=== PATIENT | female | born 1955 | race Caucasian/White ===

== ENCOUNTER 2019-09-25 20:46 | Emergency (ER) | payer OTHER ==
[~2019-09-25] VITALS: Ht 162.6 cm; Wt 82.6 kg
[~2019-09-25 20:46] MED LIST: AZIT250T6 PO; BENZ100C PO
--- NOTE | 2019-09-25 20:57 | PHYS DOC ---
Past History Past Medical History: No Pertinent History Past Surgical History: No Surgical History Alcohol Use: None Drug Use: None Adult General Chief Complaint Chief Complaint: MECHANICAL FALL... " I just came back from [place].. my friend told me to be careful... but I was out shoveling the drive way.. and fell.. the Lt knee is not too bad.. but this right is getting worse by the minute..." HPI HPI Patient is a 64 year old female who presents with above hx and complaints of fall. Patient localizes the area primary pain to right medial aspect of collateral ligament and meniscus. Distal neurovascular intact. Patient is able to do straight leg lift. Pain is exacerbated with stress on medial collateral li gament. There is obvious edema. There is no obvious click. No previous injury to this right knee. Left knee has a small contusion. Patient recent travel from [place]. Pt. normally follows with Dr. Clarke. Review of Systems Review of Systems Constitutional: Denies fever or chills [] Eyes: Denies change in visual acuity, redness, or eye pain [] HENT: Denies nasal congestion or sore throat [] Respiratory: Denies cough or shortness of breath [] Cardiovascular: No additional information not addressed in HPI [] GI: Denies abdominal pain, nausea, vomiting, bloody stools or diarrhea [] : Denies dysuria or hematuria [] Musculoskeletal: Denies back pain or joint pain. Except complaints of right knee injury Integument: Denies rash or skin lesions [] Neurologic: Denies headache, focal weakness or sensory changes [] Endocrine: Denies polyuria or polydipsia [] All other systems were reviewed and found to be within normal limits, except as documented in this note. Family History Family History Noncontributory to presentation Current Medications Current Medications See nursing for home meds Allergies Allergies Allergies Coded Allergies Type Severity Reaction Last Updated Verified No Known Drug Allergies 12/14/14 No Physical Exam Physical Exam Constitutional: inacute distress, non-toxic appearance. [] HENT: Normocephalic, atraumatic, bilateral external ears normal, oropharynx moist, no oral exudates, nose normal. [] Eyes: PERRLA, EOMI, conjunctiva normal, no discharge. [] Neck: Normal range of motion, no tenderness, supple, no stridor. [] Cardiovascular:Heart rate regular rhythm, no murmur [] Lungs & Thorax: Bilateral breath sounds equal at apex on auscultation [] Abdomen: Bowel sounds normal, soft, no tenderness, no masses, no pulsatile masses. [] Skin: Warm, dry, no erythema, no rash. [] Silver nails Back: No tenderness, no CVA tenderness. [] Extremities: No tenderness, no cyanosis, no clubbing, ROM intact, no edema. [] Except the findings in right knee as per history of present illness Neurologic: Alert and oriented X 3, move s ext. on request, distal sensory, reports mild numbness along course of Rt. distal tibial nerve, no focal deficits noted. [] Psychologic: Affect anxious, judgement normal, mood normal. [] EKG EKG [] Radiology/Procedures Radiology/Procedures [][address] [id number] IMAGING REPORT Signed PATIENT: BRIAN WALLIS ACCOUNT: [id number] : 1955 LOCATION: ER AGE: 64 SEX: F EXAM STATUS: REG ER ORD. PHYSICIAN: SUSAN PRICE MD REASON: Injury from fall, right knee pain PROCEDURE: KNEE RIGHT 4V Exam: Right knee 4 views INDICATION: Fall TECHNIQUE: Frontal, lateral, oblique and sunrise views of the right knee Comparisons: None FINDINGS: Bone mineralization is normal. No acute or healed fractures. Soft tissues are unremarkable. Joint spaces are well-maintained. IMPRESSION: No acute osseous abnormality. Electronically signed by: Dionna Ayers MD (09/25/2019 9:49 PM) [facility] DICTATED AND SIGNED BY: DIONNA AYERS MD DATE: 09/25/192148 CC: SUSAN PRICE MD; NEVA CLARKE MD ~ Course & Med Decision Making Course & Med Decision Making Pertinent Labs and Imaging studies reviewed. (See chart for details) Ice, elevation,splint, walker, rest. Follow up with primary and orthro. Tylenol and Ibuprofen for pain. Vicoprofen for marked pain. Return if any concerns.. Distal neurovascular intact after application of Sam wrap. 1. Contusion 2, Collateral Lig. strain 3. Possible meniscus injury [] Dragon Disclaimer Dragon Disclaimer This electronic medical record was generated, in whole or in part, using a voice recognition dictation system. Departure Departure: Disposition: 01 HOME/RESIDENCE PRIOR TO ADM Condition: STABLE Referrals: NEVA CLARKE MD (PCP) Scripts Hydrocodone/Ibuprofen (HYDROCODONE-IBUPROFEN 7.5-200 ) 1 Each Tablet 1 TAB PO PRN Q6HRS PRN for PAIN, #30 TAB 0 Refills Prov: SUSAN PRICE MD 09/25/19 Narda Disclaimer This chart was dictated in whole or in part using Voice Recognition software in a busy, high-work load, and often noisy Emergency Department environment. It may contain unintended and wholly unrecognized errors or omissions. Dragon Disclaimer This chart was dictated in whole or in part using Voice Recognition software in a busy, high-work load, and often noisy Emergency Department environment. It may contain unintended and wholly unrecognized errors or omissions. SUSAN PRICE MD Sep 25, 2019 20:57
[2019-09-25] MEDS ORDERED: HYDR-1179 PO (21:23)
[2019-09-25] MEDS ORDERED: oxyCODONE/APAP 5/325 1 TAB TABLET PO ONE (21:30)
--- NOTE | 2019-09-25 21:52 | RAD ---
Exam: Right knee 4 views INDICATION: Fall TECHNIQUE: Frontal, lateral, oblique and sunrise views of the right knee Comparisons: None FINDINGS: Bone mineralization is normal. No acute or healed fractures. Soft tissues are unremarkable. Joint spaces are well-maintained. IMPRESSION: No acute osseous abnormality. Electronically signed by: Dionna Peng MD (09/25/2019 9:49 PM) [facility]
[2019-09-25 22:45] VITALS: BP 121/79
== END 2019-09-25 22:45 | disposition home or self-care (01) ==
LOC: ER 20:46
DX: S86.911A Strain of unspecified muscle(s) and tendon(s) at lower leg level, right leg, initial encounter (principal); S80.02XA Contusion of left knee, initial encounter; W18.39XA Other fall on same level, initial encounter; Y93.89 Activity, other specified; Y92.89 Other specified places as the place of occurrence of the external cause; Y99.8 Other external cause status
CPT/HCPCS: 73564; 99284